=== PATIENT | female | born 1950 | race Caucasian/White ===

== ENCOUNTER 2018-11-03 23:20 | Observation (INO) ==
[2018-11-03] MEDS ORDERED: Nitroglycerin 0.4 MG TAB.SUBL SL ONE (23:22)
[2018-11-03 23:58] LABS: Basophils # 0.1 K/mcL (0.0-0.2); Basophils % 1.3 %; Eosinophils # 0.5 K/mcL (0.0-0.6); Eosinophils % 6.5 %; Hematocrit 42.8 % (35.3-44.9); Hemoglobin 14.7 g/dL (11.5-15.4); Immature Granulocytes % 0.3 % (0-4); Lymphocytes # 2.6 K/mcL (0.6-4.6); Lymphocytes % 36.3 %; Mean Corpuscular HGB Conc 34.3 g/dL (31.6-35.5); Mean Corpuscular Hemoglobin 32.5 pg (28.0-33.3); Mean Corpuscular Volume 94.5 fL (83.0-100.0); Mean Platelet Volume 9.1 fL (9.4-12.4); Monocytes # 0.8 K/mcL (0.0-1.3); Monocytes % 11.1 %; Neutrophils # 3.1 K/mcL (1.6-8.9); Platelet Count 294 K/mcL (140-400); Red Blood Count 4.53 M/mcL (3.82-4.97); Red Cell Distribution Width 14.3 % (11.5-14.5); Segmented Neutrophils % 44.5 %
[2018-11-03] MEDS ORDERED: *HR* Morphine 2 MG/ML SYRINGE IVP ONE (23:58)
[2018-11-04] MEDS ORDERED: Ondansetron 4 MG/2 ML VIAL IVP ONE (00:15)
[2018-11-04 00:19] LABS: BUN/Creatinine Ratio 15 (6-26); Blood Urea Nitrogen 14 mg/dL (8-23); Calcium 10.4 mg/dL (8.6-10.3); Carbon Dioxide 28 mEq/L (23-29); Chloride 99 mEq/L (98-107); Glucose 95 mg/dL (70-105); Osmolality,Calculated 282 (280-300); Potassium 3.6 mEq/L (3.5-5.1); Sodium 136 mEq/L (136-145); eGFR For Non-African Americans > 60 (> 60)
[2018-11-04 00:21] LABS: Troponin I < 0.03 ng/mL (< 0.04)
--- NOTE | 2018-11-04 00:22 | Emergency Department Note ---
Disposition Clinical Impression: Chest pain Qualifiers: Chest pain type: unspecified Qualified Code(s): R07.9 - Chest pain, unspecified Disposition: Admitted As Inpatient Condition: Fair Referrals: Elli Barnes CNP [Advanced Practice Nurse] - Time of Disposition: 00:52 General Adult HPI - General Stated complaint: chest pain Time Seen by Provider: 11/03/18 23:22 Source: patient, EMS Limitations: no limitations - History of Present Illness Pain Scale: 5 - Related Data Previous Rx's Medication Instructions Recorded OxyCODONE/APAP 5/325 [Percocet 1 each PO Q6HR PRN #6 tablet 06/24/16 5/325] Allergies Allergy/AdvReac Type Severity Reaction Status Date / Time Sulfa (Sulfonamide Allergy Hives Verified 06/24/16 09:46 Antibiotics) Past Medical History - Past Medical History Medical history: Reports: COPD, osteoporosis, thyroid disease Psychiatric history: Reports: no psych history - Social History Smoking Status: Current every day smoker Smokeless Tobacco Status: No Alcohol use: Reports: none Drug use: Reports: none Physical Exam - General Limitations: no limitations General appearance: alert Course Vital Signs Temperature 97.7 F 11/03/18 23:23 Pulse Rate 85 11/03/18 23:23 Respiratory Rate 16 11/03/18 23:23 Blood Pressure 155/77 11/03/18 23:23 O2 Sat by Pulse Oximetry 97 11/03/18 23:23 Temperature 97.7 F 11/03/18 23:23 Pulse Rate 85 11/03/18 23:23 Respiratory Rate 16 11/03/18 23:23 Blood Pressure 155/77 11/03/18 23:23 O2 Sat by Pulse Oximetry 97 11/03/18 23:23 Oxygen Delivery Oxygen Delivery Room Air Medical Decision Making - Lab Data Result diagrams: 11/03/18 23:43 11/03/18 23:43 Lab Results 11/03/18 11/03/18 Range/Units 23:43 23:43 WBC 7.1 (4.3-11.1) K/mcL RBC 4.53 (3.82-4.97) M/mcL Hgb 14.7 (11.5-15.4) g/dL Hct 42.8 (35.3-44.9) % MCV 94.5 (83.0-100.0) fL MCH 32.5 (28.0-33.3) pg MCHC 34.3 (31.6-35.5) g/dL RDW 14.3 (11.5-14.5) % Plt Count 294 (140-400) K/mcL MPV 9.1 L (9.4-12.4) fL Immature Gran % 0.3 (0-4) % Seg Neutrophils % 44.5 % Lymphocytes % 36.3 % Monocytes % 11.1 % Eosinophils % 6.5 % Basophils % 1.3 % Neutrophils # 3.1 (1.6-8.9) K/mcL Lymphocytes # 2.6 (0.6-4.6) K/mcL Monocytes # 0.8 (0.0-1.3) K/mcL Eosinophils # 0.5 (0.0-0.6) K/mcL Basophils # 0.1 (0.0-0.2) K/mcL Sodium 136 (136-145) mEq/L Potassium 3.6 (3.5-5.1) mEq/L Chloride 99 (98-107) mEq/L Carbon Dioxide 28 (23-29) mEq/L BUN 14 (8-23) mg/dL Creatinine 0.91 (0.60-1.20) mg/dL Est GFR ( Amer) > 60 (> 60) Est GFR (Non-Af Amer) > 60 (> 60) BUN/Creatinine Ratio 15 (6-26) Glucose 95 (70-105) mg/dL Calculated Osmolality 282 (280-300) Calcium 10.4 H (8.6-10.3) mg/dL Troponin I < 0.03 (< 0.04) ng/mL Attestation Statement - Attestation Attestation: I, Kiran Azul DO, examined this patient [id number] and my medical decision-making was reviewed with Dr. Biju Griggs , Resident Physician. I agree with the documented findings, disposition and treatment plan as described except to the extent set forth below. Please see my progress notes for details. 68-year-old female presents emergency room for evaluation of chest discomfort and pain over the left lateral chest wall. She has had it for approximately 4 days. The patient comes and goes. Today it is been almost persistent. Patient denies any falls trauma or injury. Denies any nausea vomiting or diarrhea. Denies any fevers or chills. 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 She uses inhalers breathing treatments at home. She does not typically use oxygen. Vital signs were stable on presentation. Patient is alert and oriented. Patient denies any falls trauma or injury. Lungs are clear. Heart is regular. Shows expiratory wheezing noted on exam but otherwise is moving appropriately. Patient has no reproducible symptoms with palpation of the chest wall. No crepitus or deformities noted. She has normal-appearing extremities. Abdomen is soft. No guarding no rigidity no peritoneal symptoms. Physical exam and description of the presentation is concerning for cardiac versus pulmonary etiology. Breathing treatments and steroids along with chest x-ray CBC chemistry troponin and EKG will be collected. Disposition of indeterminate workup and treatment course have been established. See detailed documentation of the physical exam, medical intervention, medical decision-making and disposition. No critical care by the patient's treatment course at this time. [id number] Patient's labs are unremarkable. Pain did not resolve with nitroglycerin. One single dose of morphine was given patient felt better. Breathing treatments and steroids have been provided. Hospitalist Dr. Marin is contacted. Recommendation for admission for ACS evaluation symptomatically control possible COPD exacerbation. Discussed. No other concerns or issues no this time. Patient will be admitted for symptomatic control management. Patient will monitor in emergency room until admission process is completed.
--- NOTE | 2018-11-04 00:30 | Emergency Department Note ---
Disposition Clinical Impression: Chest pain Qualifiers: Chest pain type: unspecified Qualified Code(s): R07.9 - Chest pain, unspecified Disposition: Admitted As Inpatient Condition: Fair Referrals: Elli Barnes CNP [Primary Care Provider] - Time of Disposition: 00:33 General Adult HPI - General Chief complaint: ED Chest Pain Stated complaint: chest pain Time Seen by Provider: 11/03/18 23:22 Source: patient, EMS Mode of arrival: EMS Limitations: no limitations Nursing Notes Reviewed: Yes Vital Signs Reviewed: Yes - History of Present Illness HPI Narrative: Patient is a 68-year-old female with a past medical history of SVT, COPD, 1 PPD, and thyroid disease presents emergency department for left-sided chest pain that she describes as a aching pain has been going on for the past 3 days but was worse this evening. States this evening the chest pain became a 10/10 associated with dyspnea. Patient took a full dose of aspirin at home. She states she checked her blood pressure at the time of her intense chest pain and it was 190 systolic. She received 3 doses nitroglycerin and route which improve d her pain to a 5/10. The patient states that she does not herself feel short of breath however her family has noticed her becoming short of breath with walking short distances. Pain Scale: 5 - Related Data Previous Rx's Medication Instructions Recorded OxyCODONE/APAP 5/325 [Percocet 1 each PO Q6HR PRN #6 tablet 06/24/16 5/325] Allergies Allergy/AdvReac Type Severity Reaction Status Date / Time Sulfa (Sulfonamide Allergy Hives Verified 06/24/16 09:46 Antibiotics) All systems ED: reviewed and negative except as stated. Review of Systems: As Per HPI Constitutional: Denies: fever, chills Cardiovascular: Reports: chest pain, dyspnea on exertion. Denies: palpitations, edema Past Medical History - Past Medical History Attestation: Yes The following information was validated with the patient. Medical history: Reports: COPD, osteoporosis, thyroid disease Psychiatric history: Reports: no psych history - Social History Smoking Status: Current every day smoker Smokeless Tobacco Status: No Alcohol use: Reports: none Drug use: Reports: none Physical Exam CONSTITUTIONAL: Well-appearing; well-nourished; A&O X 3. HEAD: Normocephalic; atraumatic EYES: PERRL, no scleral icterus NOSE: The nose is normal in appearance without rhinorrhea NECK: No JVD or distended neck veins RESP: Normal chest excursion with respiration; breath sounds clear and equal bilaterally; no wheezes, rhonchi, or rales CARD: Regular rhythm, without murmurs, rub or gallop ABD: Non-distended; non-tender, soft, without rigidity, rebound or guarding,no pulsatile mass CHEST: No pain with palpation SKIN: Normal for age and race; warm and dry without diaphoresis ; no apparent lesions EXTREMITIES: Pulses are 2 plus and equal times 4 extremities, no peripheral edema or calf muscle pain - General Limitations: no limitations General appearance: alert Course Course Narrative: Psoas time is for ACS causing the patient's chest pain. Given that it did not improve with nitroglycerin. She had no further improvement after an additional dose of nitroglycerin in the ED. She is given a dose of morphine which comple tely resolved her pain. Her lab work was unremarkable and EKG was nonischemic. Her chest x-ray shows resolution as well as possibly a pneumonia seen on CAT scan proximally 2 weeks ago. I discussed the patient's case with Dr. Marin, he agrees to accept the patient. I updated the family with this plan and they are agreeable. HEART score is moderate. Vital Signs Temperature 97.7 F 11/03/18 23:23 Pulse Rate 85 11/03/18 23:23 Respiratory Rate 16 11/03/18 23:23 Blood Pressure 155/77 11/03/18 23:23 O2 Sat by Pulse Oximetry 97 11/03/18 23:23 Temperature 97.7 F 11/03/18 23:23 Pulse Rate 85 11/03/18 23:23 Respiratory Rate 16 11/03/18 23:23 Blood Pressure 155/77 11/03/18 23:23 O2 Sat by Pulse Oximetry 97 11/03/18 23:23 Oxygen Delivery Oxygen Delivery Room Air Medical Decision Making - Medical Records Medical records reviewed: Yes I reviewed the patient's medical records. - Lab Data Lab results reviewed: Yes I reviewed the patient's lab results. Result diagrams: 11/03/18 23:43 11/03/18 23:43 Lab Results 11/03/18 11/03/18 Range/Units 23:43 23:43 WBC 7.1 (4.3-11.1) K/mcL RBC 4.53 (3.82-4.97) M/mcL Hgb 14.7 (11.5-15.4) g/dL Hct 42.8 (35.3-44.9) % MCV 94.5 (83.0-100.0) fL MCH 32.5 (28.0-33.3) pg MCHC 34.3 (31.6-35.5) g/dL RDW 14.3 (11.5-14.5) % Plt Count 294 (140-400) K/mcL MPV 9.1 L (9.4-12.4) fL Immature Gran % 0.3 (0-4) % Seg Neutrophils % 44.5 % Lymphocytes % 36.3 % Monocytes % 11.1 % Eosinophils % 6.5 % Basophils % 1.3 % Neutrophils # 3.1 (1.6-8.9) K/mcL Lymphocytes # 2.6 (0.6-4.6) K/mcL Monocytes # 0.8 (0.0-1.3) K/mcL Eosinophils # 0.5 (0.0-0.6) K/mcL Basophils # 0.1 (0.0-0.2) K/mcL Sodium 136 (136-145) mEq/L Potassium 3.6 (3.5-5.1) mEq/L Chloride 99 (98-107) mEq/L Carbon Dioxide 28 (23-29) mEq/L BUN 14 (8-23) mg/dL Creatinine 0.91 (0.60-1.20) mg/dL Est GFR ( Amer) > 60 (> 60) Est GFR (Non-Af Amer) > 60 (> 60) BUN/Creatinine Ratio 15 (6-26) Glucose 95 (70-105) mg/dL Calculated Osmolality 282 (280-300) Calcium 10.4 H (8.6-10.3) mg/dL Troponin I < 0.03 (< 0.04) ng/mL - Radiology Data Radiology results reviewed: Yes I reviewed the patient's radiology results. Chest X-Ray 11/03/18 23:22 IMPRESSION: Partial interval clearing right middle lobe airspace disease. D/ / Fernie Small MD / Fernie Small MD Interpreting Provider: Fernie Small MD - EKG Data EKG #1 EKG attestation: Yes I reviewed and interpreted this EKG. EKG results narrative: EKG done at 23:34 shows sinus rhythm at a rate of 85 bpm. Normal axis. Intervals within normal limits. No signs of ST elevation, ST depression or Q waves present. No STEMI. Unchanged from EKG done on 01/07/2014. Attestation Statement - Attestation Attestation: I, Kiran Azul DO, examined this patient [id number] and my medical decision-making was reviewed with Dr. Biju Griggs, Resident Physician. I agree with the documented findings, disposition and treatment plan as described except to the extent set forth below. Please see my progress notes for details.
[2018-11-04] MEDS ORDERED: Nitroglycerin 0.4 MG TAB.SUBL SL PRN (07:34)
[2018-11-04] MEDS ORDERED: Aspirin Enteric Coated 325 MG Tablet PO STA (07:41)
[2018-11-04] MEDS ORDERED: Regadenoson 0.4 MG/5 ML SYRINGE IVP ONE (07:42)
[2018-11-04] MEDS ORDERED: traMADol 50 MG TABLET PO PRN (07:44)
[2018-11-04] MEDS ORDERED: Naloxone 0.4 MG/ML INJ IVP PRN (07:44)
[2018-11-04] MEDS ORDERED: Acetaminophen 325 MG TABLET PO PRN (07:44)
--- NOTE | 2018-11-04 07:49 | Internal Med History&Physical ---
Date of Encounter: 11/04/18 Time of Encounter: 07:48 Internal Medicine - H&P: HPI Admitted From: Home Plans for Post Hospital Care: Home History of present illness: Patient is a 68-year-old female with a past medical history of SVT, COPD, 1 PPD, and thyroid disease presents emergency department for left-sided chest pain that she describes as a aching pain has been going on for the past 3 days but was worse this evening. States this evening the chest pain became a 10/10 associated with dyspnea. Patient took a full dose of aspirin at home. She states she checked her blood pressure at the time of her intense chest pain and it was 190 systolic. She received 3 doses nitroglycerin and route which improved her pain to a 5/10. The patient states that she does not herself feel short of breath however her family has noticed her becoming short of breath with walking short distances. Upon arrival, patient vital signs were stable, labs were unremarkable except mildly elevated calcium level. Chest x-ray showed interval change of right mid dle lobe air space disease. EKG obtained at the ED showed no acute ST-T change, however, repeat EKG after patient arrival to the floor showed biphasic ST-T change on leads V2 to V3. First set of troponin was negative. Patient stated that she had a couple stress tests in the past which were negative. Due to her concerning symptoms and the EKG findings, patient will be admitted for observation. CODE STATUS discussed with patient, she wishes for code. Past Med Surg Social Fam HX - Past Medical History Medical history: COPD, osteoporosis, thyroid disease Additional medical history: SVT. Graves Disease Psychiatric history: no psych history - Past Surgical History Additional surgical history: Nonhodgkins lymphoma - Social History Smoking Status: Current every day smoker Smokeless Tobacco Status: No Alcohol use: none Drug use: none - Family History Father Living Status: Age at : 69 Hx Family Cardiac Disorders: Yes ([place]) Mother Hx Family Neurologic Disorders: Yes (dementia) Internal Medicine - H&P: Meds OxyCODONE/APAP 5/325 [Percocet 5/325] 1 each PO Q6HR PRN #6 tablet 06/24/16 [Rx] Aspirin [Ecotrin] 325 mg PO DAILY 11/04/18 [History] Calcium Carbonate [Calcium] 1 tab PO DAILY 11/04/18 [History] Levothyroxine [Synthroid] 88 mcg PO 0630 11/04/18 [History] Verapamil [Isoptin] 160 mg PO BID 11/04/18 [History] Allergy/AdvReac Type Severity Reaction Status Date / Time Sulfa (Sulfonamide Allergy Hives Verified 06/24/16 09:46 Antibiotics) All Systems PM: A 10-system review of systems was performed and is negative for pertinent findings except as documented above in the HPI. Review of systems: REVIEW OF SYSTEMS: CONSTITUTIONAL: No weight loss, fever, chills, weakness or fatigue. HEENT: Eyes: No visual loss, blurred vision, double vision or yellow sclerae. Ears, Nose, Throat: No hearing loss, sneezing, congestion, runny nose or sore throat. SKIN: No rash or itching. CARDIOVASCULAR: see HPI. RESPIRATORY: No shortness of breath, cough or sputum. GASTROINTESTINAL: No anorexia, nausea, vomiting or diarrhea. No abdominal pain or blood. GENITOURINARY: No dysuria, urgency, or frequency. NEUROLOGICAL: No headache, dizziness, syncope, paralysis, ataxia, numbness or tingling in the extremities. No change in bowel or bladder control. MUSCULOSKELETAL: No muscle, back pain, joint pain or stiffness. HEMATOLOGIC: No anemia, bleeding or bruising. LYMPHATICS: No enlarged nodes. No history of splenectomy. PSYCHIATRIC: No history of depression or anxiety. ENDOCRINOLOGIC: No reports of sweating, cold or heat intolerance. No polyuria or polydipsia. - Constitutional Vitals: Temp Pulse Resp BP Pulse Ox 97.6 F 79 16 190/100 97 11/04/18 04:52 11/04/18 04:52 11/04/18 04:52 11/04/18 06:56 11/04/18 04:52 General appearance: Present: cooperative, A&O X 3, answers questions appropriately Exam: PHYSICAL EXAMINATION: GENERAL APPEARANCE: The patient is alert, oriented and in no acute distress. HEENT: Head is normocephalic. The sinuses are nontender. Pupils are equal and reactive. The nares are patent. Oropharynx clear without lesions. NECK: Supple without lymphadenopathy. HEART: Regular rate and rhythm. LUNGS: No crackles or wheezes are heard. ABDOMEN: Soft, nontender, nondistended with good bowel sounds heard. Inguinal area is normal. EXTREMITIES: Without cyanosis, clubbing or edema. NEUROLOGICAL: Gross nonfocal. SKIN: Warm and dry without any rash. Internal Med - H&P Results - Labs CBC & Chem 7: 11/03/18 23:43 11/03/18 23:43 Labs: Short CBC 11/03/18 Range/Units 23:43 WBC 7.1 (4.3-11.1) K/mcL Hgb 14.7 (11.5-15.4) g/dL Hct 42.8 (35.3-44.9) % Plt Count 294 (140-400) K/mcL Neutrophils # 3.1 (1.6-8.9) K/mcL BMP 11/03/18 23:43 Sodium 136 Potassium 3.6 Chloride 99 Carbon Dioxide 28 BUN 14 Creatinine 0.91 Glucose 95 Calcium 10.4 H Cardiac Enzymes 11/03/18 Range/Units 23:43 Troponin I < 0.03 (< 0.04) ng/mL - Impressions ITS Impressions Chest X-Ray 11/03/18 23:22 IMPRESSION: Partial interval clearing right middle lobe airspace disease. D/ / Fernie Small MD / Fernie Small MD Interpreting Provider: Fernie Small MD - Assessment and plan (1) Chest pain Current Visit: Yes Status: Acute Assessment and plan: 68 female with history of smoking, hypertension, and COPD center with acute onset of left-sided chest pain. Heart score is 4, moderate risk for ACS. [employer] recent labs showed elevated LDL. First set of troponin was negative. Latest EKG showed biphasic ST-T change on leads V2 to V3, suspicious for Wellen's disease. - We will continue cycle troponin, telemetry monitoring, and EKG as needed. - Consider and stress test if troponin was negative. Echocardiogram ordered. - Cardiology consult if indicated. Qualifiers: Chest pain type: unspecified Qualified Code(s): R07.9 - Chest pain, unspec ified (2) HTN (hypertension) Current Visit: No Status: Chronic Assessment and plan: BP was very labile, add as needed hydralazine, continue home medication, adjust if indicated. Qualifiers: Hypertension type: essential hypertension Qualified Code(s): I10 - Essential (primary) hypertension (3) SVT (supraventricular tachycardia) Current Visit: No Status: Chronic Assessment and plan: Currently sinus rhythm, continue verapamil. (4) COPD (chronic obstructive pulmonary disease) Current Visit: No Status: Chronic Assessment and plan: Patient has mild respiratory distress, we will start patient on bronchodilators, continue O2. Consider adding antibiotics if pneumonia was suspected. Qualifiers: COPD type: unspecified COPD Qualified Code(s): J44.9 - Chronic obstructive pulmonary disease, unspecified (5) DVT prophylaxis Current Visit: Yes Status: Acute - Time Spent With Patient Total time spent is greater than 50% in coordination of care (as documented) at patient's floor/unit and/or counseling patient: Greater than 35 minutes
[2018-11-04] MEDS ORDERED: Aspirin Enteric Coated 325 MG Tablet PO SCH (09:00)
[2018-11-04] MEDS ORDERED: *HR* LORazepam 2 MG/ML VIAL IVP ONE (09:52)
--- NOTE | 2018-11-04 13:23 | Electrocardiograph Report ---
[address] [place], [place] [address] Test Date: 2018-11-04 Pat Name: Maria T Matthews Department: 113 Room: 3B46 Gender: F [employer] Machine Former: [id number] : 1950 Requested By: Pepe Faria Order Number: [id number] Reading MD: Azalia Meng Measurements Intervals [place] Rate: 67 P: 73 DC: 155 QRS: 32 QRSD: 86 T: 23 QT: 395 QTc: 411 Interpretive Statements Sinus rhythm Low voltage, limb leads Electronically Signed On 11-04-2018 13:21:13 EST by Azalia Meng
--- NOTE | 2018-11-04 16:01 | Discharge Summary ---
- NOTES TO OUTPATIENT PROVIDER Notes to Outpatient Provider: f/u with PCP within a week. Orders not resulted at time of discharge: Pending orders 11/04/18 10:34 NM aston perf SPECT multi [NM] Routine 11/05/18 04:00 Complete Blood Count [HEME] AM 0400 Comprehensive Metabolic Panel AM 0400 Date of Encounter: 11/04/18 Time of Encounter: 16:01 - Discharge Diagnosis (1) Chest pain Priority: Primary Status: Acute Qualifiers: Chest pain type: unspecified Qualified Code(s): R07.9 - Chest pain, unspecified (2) HTN (hypertension) Priority: Secondary Status: Chronic Qualifiers: Hypertension type: essential hypertension Qualified Code(s): I10 - Essential (primary) hypertension (3) SVT (supraventricular tachycardia) Priority: Secondary Status: Chronic (4) COPD (chronic obstructive pulmonary disease) Priority: Secondary Status: Chronic Qualifiers: COPD type: unspecified COPD Qualified Code(s): J44.9 - Chronic obstructive pulmonary disease, unspecified (5) DVT prophylaxis Priority: Primary Status: Acute Hospital course: Ms. Matthews is a 68 year old female with a past medical history of SVT, COPD, 1 PPD, and thyroid disease presents emergency department for left-sided chest pain that she describes as a aching pain has been going on for the past 3 days but was worse this evening. States this evening the chest pain became a 10/10 associated with dyspnea. Patient took a full dose of aspirin at home. She states she checked her blood pressure at the time of her intense chest pain and it was 190 systolic. She received 3 doses nitroglycerin and route which improved her pain to a 5/10. The patient states that she does not herself feel short of breath however her family has noticed her becoming short of breath with walking short distances. Upon arrival, patient vital signs were stable, labs were unremarkable except mildly elevated calcium level. Chest x-ray showed interval change of right middle lobe air space disease. EKG obtained at the ED showed no acute ST-T change, however, repeat EKG after patient arrival to the floor showed biphasic ST-T change on leads V2 to V3. First set of troponin was negative. Patient stated that she had a couple stress tests in the past which were negative. Due to her concerning symptoms and the EKG findings, patient will be admitted for observation. Serial troponin were negative, EKG ST-T change has resolved. Stress test is negative for ischemia. Echocardiogram was unremarkable. Pt also reported panic attack and anxiety. She had one attach prior to stress test and required IV ativan, which works well and abolished her symptoms instantly. Pt also noticed that her BP was elevated recently, her BP was usually good. She takes Verapamil for SVT but no BP meds at home. We will start her on Norvasc and she was instructed to check BP daily and f/u with PCP. She was also provided small amount of oral ativan for panic attack. She will f/u with PCP about anxiety meds ( PCP prescribed Zoloft in the past but does not work well, I asked her to talk to PCP again and try different meds). Pt will be discharged home today. Discharge discussed with: patient, family Time spent discussing smoking cessation with patient: more than 10 minutes - Time Spent with Patient Total time spent providing and/or coordinating discharge services: 35 mins. Greater than 30 minutes - Discharge Medications Prescriptions: amLODIPine [Norvasc] 5 mg PO DAILY #30 tablet LORazepam [Ativan] 1 mg PO DAILY PRN 6 Days #6 tablet PRN Reason: Anxiety Home Medications: OxyCODONE/APAP 5/325 [Percocet 5/325 MG] 1 each PO Q6HR PRN #6 tablet 06/24/16 [Rx] Aspirin [Ecotrin] 325 mg PO DAILY 11/04/18 [History] Calcium Carbonate [Calcium] 1 tab PO DAILY 11/04/18 [History] LORazepam [Ativan] 1 mg PO DAILY PRN 6 Days #6 tablet 11/04/18 [Rx] Levothyroxine [Synthroid] 88 mcg PO 0630 11/04/18 [History] Verapamil [Isoptin] 160 mg PO BID 11/04/18 [History] amLODIPine [Norvasc] 5 mg PO DAILY #30 tablet 11/04/18 [Rx] Allergies/Adverse Reactions: Allergy/AdvReac Type Severity Reaction Status Date / Time Sulfa (Sulfonamide Allergy Hives Verified 06/24/16 09:46 Antibiotics) Date of admission: 11/04/18 00:55 Primary care physician: Elli Barnes CNP Consults: 11/04/18 13:37 Consult to Nurse Navigator [CONS] Routine Comment: COPD - Constitutional Vitals: Temp Pulse Resp BP Pulse Ox 97.9 F 76 17 167/77 95 11/04/18 07:57 11/04/18 07:57 11/04/18 07:57 11/04/18 07:57 11/04/18 07:57 General appearance: Present: cooperative, A&O X 3, answers questions appropriately Exam: PHYSICAL EXAMINATION: GENERAL APPEARANCE: The patient is alert, oriented and in no acute distress. HEENT: Head is normocephalic. The sinuses are nontender. Pupils are equal and reactive. The nares are patent. Oropharynx clear without lesions. NECK: Supple without lymphadenopathy. HEART: Regular rate and rhythm. LUNGS: No crackles or wheezes are heard. ABDOMEN: Soft, nontender, nondistended with good bowel sounds heard. Inguinal area is normal. EXTREMITIES: Without cyanosis, clubbing or edema. NEUROLOGICAL: Gross nonfocal. SKIN: Warm and dry without any rash. - Patient Status Disposition: Home, Self-Care Condition: Fair Functional capacity at discharge: independent ambulation Overall status at discharge: patient is progressing back to baseline - Discharge Instructions Follow Up With: Elli Barnes CNP [Primary Care Provider] - 11/12/18 9:00 am () [place] MD [Partnered Physician] - 11/05/18 9:30 am Forms: ED Satisfaction Letter - Diet and Activity Activity: increase activity as tolerated Diet: advance to your usual diet
[2018-11-04 16:22] VITALS: BP 162/73
[2018-11-04] MEDS ORDERED: *HR* Heparin 5,000 UNIT/ML VIAL SQ SCH (18:00)
--- NOTE | 2018-11-05 17:42 | Electrocardiograph Report ---
[address] [place], [place] [address] Test Date: 2018-11-03 Pat Name: Maria T Matthews Department: [id number] Room: 3B46 Gender: F [employer]: : 1950 Requested By: Biju Griggs Order Number: [id number] Reading MD: Azalia Meng Measurements Intervals [place] Rate: 85 P: 77 CA: 160 QRS: 58 QRSD: 73 T: -1 QT: 382 QTc: 455 Interpretive Statements Sinus rhythm Low voltage, precordial leads Nonspecific ST-T changes Electronically Signed On 11-05-2018 17:40:49 EST by Azalia Meng
== END 2018-11-04 17:02 | disposition home or self-care (01) ==
LOC: EMEROOARM 23:20 → 3BNU 23:20
PROVIDERS: ADMIT Family Medicine; ATTEND Family Medicine